=== PATIENT | male | born 1975 | race Caucasian/White ===

== ENCOUNTER → 2020-06-17 | Outpatient (CLI) | payer OTHER | LOC: CAT 15:36 | PROVIDERS: ATTEND Internal Medicine Cardiovascular Disease | DX: Z13.6 Encounter for screening for cardiovascular disorders (principal); I25.10 Atherosclerotic heart disease of native coronary artery without angina pectoris; E78.00 Pure hypercholesterolemia, unspecified ==

== ENCOUNTER → 2020-06-17 | Outpatient (CLI) | payer BC, OTHER | LOC: SJCVCIMAG 13:59 | PROVIDERS: ATTEND Internal Medicine Cardiovascular Disease | DX: R07.9 Chest pain, unspecified (principal); R06.00 Dyspnea, unspecified; R53.83 Other fatigue; Z82.49 Family history of ischemic heart disease and other diseases of the circulatory system ==

== ENCOUNTER → 2020-06-19 | Outpatient (CLI) | payer BC, OTHER | LOC: SJCVCIMAG 08:17 | PROVIDERS: ATTEND Internal Medicine Cardiovascular Disease | DX: K82.4 Cholesterolosis of gallbladder (principal) ==

== ENCOUNTER → 2021-02-11 | Outpatient (CLI) | payer BC, OTHER | END | disposition home or self-care (01) | LOC: SJCVCIMAG 08:15 | PROVIDERS: ATTEND Internal Medicine Cardiovascular Disease | DX: K82.4 Cholesterolosis of gallbladder (principal) ==